=== PATIENT | male | born 1980 | race Caucasian/White ===

== ENCOUNTER 2016-11-16 19:19 | Emergency (ER) | payer OTHER ==
[~2016-11-16] VITALS: Ht 172.7 cm; Wt 83.0 kg
[2016-11-16 19:41] VITALS: BP 123/77
== END 2016-11-16 21:10 | disposition home or self-care (01) ==
LOC: ED 21:00
DX: S61.211A Laceration without foreign body of left index finger without damage to nail, initial encounter (principal); X58.XXXA Exposure to other specified factors, initial encounter; Y93.89 Activity, other specified; Y92.89 Other specified places as the place of occurrence of the external cause; Y99.8 Other external cause status
CPT/HCPCS: 12001; 99284